=== PATIENT | female | born 1950 | race Asian ===

== ENCOUNTER 2018-06-12 12:18 | Emergency (ER) | payer OTHER ==
[~2018-06-12] VITALS: Ht 167.6 cm; Wt 53.5 kg
--- NOTE | 2018-06-12 12:22 | NUR ---
placed in bed 6
[2018-06-12 12:34] VITALS: BP_SYST 135
--- NOTE | 2018-06-12 12:34 | NUR ---
brought in by [facility] for c/o pain of neck and back pain, no apparent distress.
--- NOTE | 2018-06-12 12:35 | NUR ---
ER MD Dr Rangel at bedside to examine patient
--- NOTE | 2018-06-12 13:01 | NUR ---
Patient given written and verbal discharge instructions and verbalizes understanding. Dr Claire STEWART MD discussed with patient the results and treatment provided. Patient in stable condition. ID arm band removed. Rx of motrin given. Patient educated on pain management and to follow up with PMD. Pain Scale 3/10. Opportunity for questions provided and answered. Medication side effect fact sheet provided.
[2018-06-12 14:13] VITALS: BP_SYST 135
== END 2018-06-12 13:01 | disposition home or self-care (01) ==
LOC: SED 12:18
DX: M79.10 Myalgia, unspecified site (principal); R03.0 Elevated blood-pressure reading, without diagnosis of hypertension; Z90.49 Acquired absence of other specified parts of digestive tract; V43.62XA Car passenger injured in collision with other type car in traffic accident, initial encounter; Y93.89 Activity, other specified; Y92.89 Other specified places as the place of occurrence of the external cause; Y99.8 Other external cause status
CPT/HCPCS: 99282